=== PATIENT | female | born 2000 | race Caucasian/White ===

== ENCOUNTER 2024-01-25 09:00 | Inpatient (IN) | payer SELFPAY ==
[~2024-01-25] VITALS: Ht 373.4 cm; Wt 58.2 kg
[2024-01-25] VITALS (42 sets, daily range): BP systolic 87–138; BP diastolic 52–82; PULSE 71–99; TEMP 97.6–98.7
--- NOTE | 2024-01-25 09:10 | NUR ---
Presents to labor and delivery. States has had yellow drainage from the vagina. Amnio test done, turned a little blue. Dr Tadeo called and new orders for rom plus test.
--- NOTE | 2024-01-25 10:00 | NUR ---
Rests in bed, alert. Assessment done with portable translater.
--- NOTE | 2024-01-25 10:00 | NUR ---
Patient walking in the room. Denies discomfort at this time.
[2024-01-25] MEDS ORDERED: LR 1,000 ML IV PRN (10:30)
[2024-01-25] MEDS ORDERED: LR 1,000 ML IV SCH (12:30)
[2024-01-25] MEDS ORDERED: LR & Oxytocin 500 ML IV SCH (12:30)
[2024-01-25] MEDS ORDERED: Penicillin G Potassium 5,000,000 UNITS in NS 100 ML IV ONE (12:30)
--- NOTE | 2024-01-25 12:50 | NUR ---
1250This RN to bedside. Report received from Akbar Kauffman RN. IV by Akbar Kauffman RN, see iv flowsheet. Unable to obtain labs from IV site. Lab notified. 1300Translator: Rodriguez #[id number] utlized at this time for eduation, assessment, and consents. Consent forms explained and signed. LR infusing per protocol PCN G initated. See emar. 1310Pitocin initiated per protocol. RN remains at bedside discussing plan of care with pt utilizing technology applications engineer. 1340Dr. Tadeo at bedside and reviews plan of care with patient and SO utilizing technology applications engineer. Bedside US by Dr. Tadeo, cephalic presentation. Questions invited and answered. Labs obtained by tech. 1410 Patient up to bathroom to void. Patient denies any pain/discomfort/ctx. Eating light meal. Resting with call light within reach.
[2024-01-25] MEDS ORDERED: diphenhydrAMINE 50 MG/ML 1 ML VIAL IV PRN (13:45)
[2024-01-25] MEDS ORDERED: ePHEDrine 50 MG/10 ML VIAL IV PRN (13:45)
[2024-01-25] MEDS ORDERED: Ondansetron 4 MG/2 ML VIAL IV PRN (13:45)
[2024-01-25] MEDS ORDERED: Naloxone 0.4 MG/ML VIAL IV PRN (13:45)
[2024-01-25] MEDS ORDERED: diphenhydrAMINE 25 MG CAP PO PRN (13:45)
[2024-01-25 14:04] LABS: HEMATOCRIT 37.3 % (37.0-47.0); HEMOGLOBIN 12.7 g/dl (12.5-16.0); MEAN CELL VOLUME 82 fl (80.0-100.0); MEAN CORPUSCULAR HEMOGLOBIN 28 pg (27-31); MEAN CORPUSCULAR HGB CONC 34 g/dl (33.0-37.0); MEAN PLATELET VOLUME 12.2 fl (7.4-10.4); PLATELET COUNT 173 K/mm3 (130-400); RED BLOOD COUNT 4.54 M/mm3 (4.10-5.30); REDCELL DISTRIBUTION WIDTH-CV 13.9 % (11.5-14.5)
--- NOTE | 2024-01-25 15:10 | NUR ---
539202.5, G9L5 pt arrives on unit with c/o cramping/bloody show. Reports ctx every 5-10 min since yesterday. Denies any LOF. Reports normal movement. Ambulatory to LDR6. Changes into clean gown. Pt reports care at [facility]. Release of records obtained. 1514EFM explained and placed. SVE 12/06/4, ballotable. No blood noted with exam. VS obtained. Maternal HR noted to be 120-130's. FHR noted to be 160's. Assessment completed. 1525 Dr. Tadeo updated on pt. See physician notification. Pt updated on plan of care. Resting with call light within reach.
[2024-01-25 15:25] LABS: EOSINOPHIL 1 % (0-4); LYMPHOCYTE 14 % (20.0-51.0); NEUTROPHILS 75 % (42.0-75.2)
[2024-01-25 15:26] LABS: PLATELET ESTIMATE NORMAL (NORMAL)
[2024-01-25] MEDS ORDERED: Penicillin G Potassium 2,500,000 UNITS in NS 100 ML IV SCH (16:21)
--- NOTE | 2024-01-25 17:20 | NUR ---
9407Interpreter [facility] #[id number] used to discuss position changes, birthing ball, pain level, and cervical exam.
--- NOTE | 2024-01-25 19:10 | NUR ---
This RN to bedside. Video site interpreter used, Javier #[id number], to review plan of care with patient and spouse. Pt verbalized understanding. Monitors off, pt up to bathroom.
--- NOTE | 2024-01-25 21:00 | NUR ---
This RN to bedside to review plan of care. Video medical interpreter used, Benedicto #[id number]. Pt reports pain is getting stronger and she would like epidural. Maldonado Georges CRNA on unit and updated. Monitors off and patient up to bathroom. 2109 - Pt sitting on edge of bed. Epidural procedure, risks, and benefits reviewed. Pt verbalized understanding. 2112 - Single shot by NOE Pedroza at this time. Pt tolerated well. 2114 - Pt positioned to wedge left with pillow support. Reviewed that patient is on strict bedrest now, pt verbalized understanding. Call light within reach, bed in low and locked position. See anesthesia delivery note.
[2024-01-25] MEDS ORDERED: ROPivacaine PF 0.2% 200 ML IV ONE (21:25)
--- NOTE | 2024-01-25 22:15 | NUR ---
Burrell catheter placed at this time. Clear, yellow urine out. Secured to leg with statlock to dependent drainage. SVE /-3, much green fluid out on chux pad beneath patient.
[2024-01-26] VITALS (88 sets, daily range): BP systolic 97–145; BP diastolic 53–94; PULSE 60–898; TEMP 97.1–99.8
--- NOTE | 2024-01-26 00:36 | NUR ---
Late deceleration down to 50 bpm for about 2 minutes. Repositioned to left lateral position with pillow support. Pt denies any changes in pain and is comfortable with epidural.
--- NOTE | 2024-01-26 11:11 | NUR ---
1111- CALLED DR TREADWELL TO UPDATE. PT HAS RECURRENT LATES DESPITE MULTIPLE POSTION CHANGES. FHT DO NOT TOLERATE MOTHER LAYING DOWN AT ALL, BABY IS VERY POSITIONAL. SVE AT 1030 6/90/0. LARGE DECEL AFTER CHECK. DR TREADWELL RESPONDED THAT HE HAD NOTED THAT WHEN HE CHECKED SVE EARILER FHT ALSO DECELED DURING THE CHECK. DR TREADWELL SAID THAT HE WOULD COME IN AND RECOMMEND A FOR THIS PT. 1115- PITOCIN SHUT OFF. EXPLAINED TO PT THAT BABY WAS HAVING A DIFFICULT TIME WITH THE CX. 1140- DR TREADWELL AT BEDSIDE USING THE STENCIL SPRAYER TO EXPLAIN TO PT THAT BABY IS NOT TOLERATING LABOR WITH PITOCIN AND HE RECOMMENDS A . PT UNDERSTOOD AND AGREED THROUGH THE STENCIL SPRAYER.
--- NOTE | 2024-01-26 12:52 | NUR ---
PT'S BOYFRIEND ASKED TO TALK. INTERACTIVE ACCOUNT MANAGER WAS TURNED ON. PT'S BOYFRIEND ASKED IF IT WAS AN OPTION TO WAIT A WHILE TO TRY TO HAVE THE BABY VAGINALLY WITHOUT THE HELP OF THE PITOCIN. DR TREADWELL WAS BROUGHT INTO THE CONVERSATION AT THAT TIME. DR TREADWELL DID AN SVE AND NOTED THAT HER EXAM WAS UNCHANGED FROM THIS MORNING. DR TREADWELL TOLD PT THAT SINCE HER BABY LOOKED OKAY ON THE MONITOR THAT HE WAS OKAY WITH WAITING FOR A LITTLE WHILE. HE DID TELL THEM THAT HE WAS CONCERNED WITH HOW LONG SHE HAD BEEN RUPTURED AT THIS POINT. THE PT WANTED TO TRY ANYWAY. DR TREADWELL SAID THAT IF SHE REMAINS UNCHANGED THIS AFTERNOON, HE WILL CONTINUE TO RECOMMEND A .
--- NOTE | 2024-01-26 15:07 | NUR ---
CALLED DR TREADWELL TO UPDATE ABOUT PT'S TEMP AT 99.5. ALSO ASKED IF NIPPLE STIMULATION WAS AN OPTION FOR THIS PT. DR TREADWELL SAID THAT HE IS FINE WITH HER TRYING SOME NIPPLE STIMULATION.
--- NOTE | 2024-01-26 15:45 | NUR ---
DIFFICULTY TRACING CX DUE TO MATERNAL POSITION. TOCO ADJUSTED MULTIPLE TIMES WITH LIITLE SUCCESS.
--- NOTE | 2024-01-26 17:45 | NUR ---
DIFFICULTY TRACING CX DUE TO MATERNAL POSITION AND ANATOMY.
[2024-01-26] MEDS ORDERED: Ondansetron 4 MG/2 ML VIAL ONE (18:59)
--- NOTE | 2024-01-26 19:00 | NUR ---
ABD CLIPPED, LEONE CATH EMPITIED OF 250 CC URINE. IV PUSH MEDS GIVEN (SEE EMAR). 191 OFF MONITORS AND TRANSFERED TO OR VIA BED.
[2024-01-26] MEDS ORDERED: Chloroprocaine PF 3% (30 MG/ML) 20 ML VIAL ONE (19:03)
[2024-01-26] MEDS ORDERED: NS 10 ML IV ONE ×2 (19:10→19:49)
[2024-01-26] MEDS ORDERED: Oxytocin 10 UNITS/ML VIAL ONE (19:10)
[2024-01-26] MEDS ORDERED: Phenylephrine 10 MG/ML VIAL ONE (19:10)
[2024-01-26] MEDS ORDERED: ePHEDrine 50 MG/ML VIAL ONE (19:10)
[2024-01-26] MEDS ORDERED: Ondansetron 4 MG/2 ML VIAL IV ONE (19:15)
[2024-01-26] MEDS ORDERED: Midazolam 2 MG/2 ML VIAL ONE (19:30)
[2024-01-26] MEDS ORDERED: fentaNYL 50 MCG/ML 2 ML VIAL ONE (19:41)
[2024-01-26] MEDS ORDERED: dexAMETHasone 10 MG/ML VIAL ONE (19:49)
[2024-01-26] MEDS ORDERED: Loratadine 10 MG TAB PO PRN (20:15)
[2024-01-26] MEDS ORDERED: Magnes Hydrox (MOM) 80 MG/ML 30 ML CUP PO PRN (20:15)
[2024-01-26] MEDS ORDERED: LR 1,000 ML IV PRN (20:45)
[2024-01-26] MEDS ORDERED: Ondansetron 4 MG/2 ML VIAL IV PRN (20:45)
[2024-01-26] MEDS ORDERED: Measles/Mumps/Rubella Virus Vaccine Live w Diluent 0.5 ML VIAL SQ SCH (20:45)
[2024-01-26] MEDS ORDERED: Naloxone 0.4 MG/ML VIAL IV PRN (20:45)
[2024-01-26] MEDS ORDERED: oxyCODONE/Acetaminophen 5-325 MG TAB PO PRN (20:45)
[2024-01-26] MEDS ORDERED: traZODone 50 MG TAB PO PRN (21:00)
[2024-01-27] VITALS (7 sets, daily range): BP systolic 102–128; BP diastolic 60–79; PULSE 70–105; TEMP 98–98.1
[2024-01-27] MEDS ORDERED: Ibuprofen 800 MG TAB PO SCH (02:02)
--- NOTE | 2024-01-27 05:00 | NUR ---
IV CHANGED TO INT. FLUIDS COMPLETE. PT IS NOT ABLE TO LIFT LEGS OFF BED TO AMB YET. THEY ARE HEAVY AND STILL NUMB FROM EPIDURAL. PERICARE DONE. PAD CHANGED, VERY SCANT AMOUNT OF BLOOD ON PAD. SCD'S ARE STILL ON. FOB AT BEDSIDE ASSISTING PT. ABD BINDER IS ON. DRESSING IS CLEAN DRY AND INTACT.
[2024-01-27] MEDS ORDERED: Sennosides/Docusate 8.6-50 MG TAB PO SCH (08:00)
--- NOTE | 2024-01-27 09:22 | NUR ---
Initial visit attempt; Family resting. Geothermal Plant Manager left card offering congratulations and God's blessings for the of their son and information regarding the availability of Spiritual Care at our hospital.
--- NOTE | 2024-01-27 12:50 | NUR ---
fitness worker Roscoe and social work student Amanda met with patient in response to social service's consult with the assistance of the [facility] paper twister. Surface Grinder Kentrell (#[id number]). This is patient's first child and she plans to stay home with baby. Father of baby, Myles, reports he is employed. Patient has no local family here, and the supports Myles has are not as reliable. Patient is connected with the health department including WIC. Patient sees Yarely with the maternal health program. Patient plans to breastfeed and is still in need of a breast pump. fitness worker gave referral to Concepcion with financial counseling to apply for Medicaid. Patient reported she has a crib and carseat available and has enough diapers, wipes, and clothes. Patient denies any mental health concerns. fitness worker addressed late care and patient stated she was not aware she was at first. patient has transpertation available for follow-up appointments for baby. fitness worker updated RN on above.
--- NOTE | 2024-01-27 14:28 | NUR ---
poultry husbandry worker left voicemail for Eliana with director financial systems to discuss the need for FAA so SW can get a breast pump ordered. OLIVIA left a voicemail with Yarely at [facility] to discuss additional future needs for pt and to collaborate.
[2024-01-28 08:00] VITALS: BP 99/62; PULSE 92; TEMP 97.7
[2024-01-28] MEDS ORDERED: PERCOCET 325 MG1 TA2 PO (11:10)
[2024-01-28] MEDS ORDERED: IBU800 M1 PO (11:10)
== END 2024-01-28 18:00 | disposition home or self-care (01) | DRG 788 ==
LOC: EDBD 09:00 → LDRO 09:00 → LDR 12:29 → OB 01-26 20:30
PROVIDERS: Obstetrics & Gynecology; ADMIT Obstetrics & Gynecology
PROC: 10D00Z1 Extraction of Products of Conception, Low, Open Approach (ICD-10-PCS; principal; 2024-01-26)
DX: O99.824 Streptococcus B carrier state complicating childbirth (principal); Z37.0 Single live birth; Z3A.39 39 weeks gestation of pregnancy; O76 Abnormality in fetal heart rate and rhythm complicating labor and delivery
CPT/HCPCS: J0665; J0690; J1100; J2250; J2371; J2401; J2405; J2540; J2590; J2765; J2795; J3010; J7120